=== PATIENT | female | born 1980 ===

== ENCOUNTER → 2025-03-02 10:23 | Outpatient (REF) | payer OTHER, SELFPAY | LOC: HWEVLT 10:23 | PROVIDERS: ATTENDING PHYSICIAN Radiology Diagnostic Radiology | DX: I83.891 Varicose veins of right lower extremity with other complications (principal) | CPT/HCPCS: 93971 ==

== ENCOUNTER → 2025-05-05 09:33 | Outpatient (REF) | payer OTHER, SELFPAY | LOC: HWEVLT 09:33 | PROVIDERS: ATTENDING PHYSICIAN Radiology Diagnostic Radiology | DX: I83.891 Varicose veins of right lower extremity with other complications (principal) | CPT/HCPCS: 36478; C1769 ==

== ENCOUNTER → 2025-05-19 15:12 | Outpatient (REF) | payer OTHER, SELFPAY | LOC: HWEVLT 15:12 | PROVIDERS: ATTENDING PHYSICIAN Radiology Vascular & Interventional Radiology | DX: I83.891 Varicose veins of right lower extremity with other complications (principal) | CPT/HCPCS: 93971 ==